=== PATIENT | female | born 1990 | race Hispanic/Latino ===

== ENCOUNTER 2018-10-06 07:43 | Day surgery (SDC) | payer OTHER ==
[~2018-10-06 07:43] MED LIST: DIPRIVAN 10 MG/ML IV ONE; ROBINUL ONE; SUBLIMAZE ONE
[2018-10-06] MEDS ORDERED: LACTATED RINGERS 1,000 ML IV SCH (09:00)
--- NOTE | 2018-10-06 09:22 | Anesthesia Consultation ---
Anesthesia Consult and Med Hx Date of service: 10/06/18 - Airway Anesthetic Teeth Evaluation: Good ROM Head & Neck: Adequate Mental/Hyoid Distance: Adequate Mallampati Class: Class I Intubation Access Assessment: Good - Pulmonary Exam CTA: Yes - Cardiac Exam Cardiac Exam: RRR - Pre-Operative Health Status ASA Pre-Surgery Classification: ASA2 - Pulmonary Hx Smoking: No Hx Asthma: Yes (NO MEDS) Hx Sleep Apnea: No (DAVY PRE SCREEN NEGATIVE) - Cardiovascular System Hx Hypertension: No - Other Systems Hx Cancer: No Hx Obesity: No - Additional Comments Anesthesia Medical History Comments: hx of childhood asthma , but symptom free as an adult - does not use any inhalers , hx of anxiety but not on any medications
--- NOTE | 2018-10-06 09:23 | Anesthesia Day of Surgery ---
Anesthesia Day of Surgery - Day of Surgery Patient Examined: Yes Patient H&P Reviewed: Yes Patient is NPO: Yes
[2018-10-06] MEDS ORDERED: GENTAMICIN 80 MG in NACL 0.9% 100 ML IV SCH (10:00)
[2018-10-06] MEDS ORDERED: WATER FOR IRRIG STERILE IR ONE (10:40)
[2018-10-06] MEDS ORDERED: METHYLENE BLUE ONE (10:48)
[2018-10-06] MEDS ORDERED: ZOFRAN IV PRN (10:51)
[2018-10-06] MEDS ORDERED: DILAUDID IV PRN (10:51)
--- NOTE | 2018-10-06 11:00 | Post Operative Note ---
Date of procedure: 10/06/18 Pre-op diagnosis: irritative sx Post-op diagnosis: same Findings: normal Procedure: cysto rpgs Anesthesia: GETA Surgeon: OSVALDO MARTÍNEZ Estimated blood loss: none Pathology: none Condition: stable Disposition: PACU
--- NOTE | 2018-10-06 11:02 | Discharge Summary ---
Short Stay Discharge Plan Activity: other (no straining ) Weight Bearing Status: Full Weight Bearing Diet: regular Special Instructions: other (inc fluids ) Follow up with: MICHELLE FARIAS MD [Primary Care Provider] - 7 Days OSVALDO MARTÍNEZ MD [Staff Physician] - 14 Days
[2018-10-06 11:54] VITALS: BP 110/58
--- NOTE | 2018-10-06 13:00 | Operative Report ---
PREOPERATIVE DIAGNOSIS: Irritative voiding symptoms. POSTOPERATIVE DIAGNOSES: Irritative voiding symptoms. PROCEDURE: Cystoscopy, retrograde. SURGEON: Anthony Jules MD. ANESTHESIA: General. FINDINGS: This is a 28-year-old woman with irritative voiding symptoms, now presents for cystoscopy. DESCRIPTION OF PROCEDURE: The patient was brought to the operating room and placed on the operating table. Following induction of anesthesia, placed in lithotomy position, prepped and draped in usual sterile fashion. The examination was normal. Cystourethroscopy showed a normal urethra, mild squamous metaplasia. Retrograde showed delicate systems bilaterally with good drainage. The bladder accommodated little over 800 mL. There were no glomerulations or ulcers. The patient tolerated the procedure well. No biopsies were required and brought to recovery in stable condition. JOB# [id number] LUIS ALBERTO/DANIA
--- NOTE | 2018-10-07 07:56 | Fluoroscopy Report ---
Bilateral retrograde urography: History: Pelvic pain. Findings: In the preliminary radiograph no radiopaque calculus identified. The contrast studies reveals adequate opacification of intrarenal collecting system and the uterus. No evidence of obstruction no extravasation of contrast. Impression: Essentially negative retrograde urography.
== END 2018-10-06 07:44 | disposition home or self-care (01) ==
LOC: OR 07:43
PROVIDERS: ATTEND Urology
DX: R35.0 Frequency of micturition (principal); F41.9 Anxiety disorder, unspecified; J45.909 Unspecified asthma, uncomplicated; Z90.49 Acquired absence of other specified parts of digestive tract; Z87.440 Personal history of urinary (tract) infections; Z79.899 Other long term (current) drug therapy; Z88.8 Allergy status to other drugs, medicaments and biological substances
CPT/HCPCS: 52005; 74420; 81025; A4217; J1580; J2704; J3010; J7120; Q9967; Q9968